=== PATIENT | female | born 1990 | race Caucasian/White ===

== ENCOUNTER 2017-09-21 15:07 | Inpatient (IN) | payer MEDICAID, OTHER ==
[~2017-09-21] VITALS: Ht 170.2 cm; Wt 79.8 kg
[~2017-09-21 15:07] MED LIST: ABIL10TA8 PO; CLON.5 PO; PLAQ200T PO; TRAZ100T10 PO; ZYPR5TAB PO
[2017-09-21] MEDS ORDERED: ALUMINUM/MAGNESIUM/SIMETH 30 ML CUP PO PRN (17:15)
[2017-09-21] MEDS ORDERED: BENZTROPINE MESYLATE 2 MG/2 ML VIAL IM PRN (17:15)
[2017-09-21] MEDS ORDERED: MAGNESIUM HYDROXIDE SUSP 30 ML CUP PO PRN (17:15)
[2017-09-21] MEDS ORDERED: ACETAMINOPHEN 325 MG TAB PO PRN (17:15)
[2017-09-21] MEDS ORDERED: BENZTROPINE MESYLATE 1 MG TAB PO PRN (17:15)
[2017-09-21] MEDS ORDERED: hydrOXYzine HCL 50 MG TAB PO PRN (17:15)
[2017-09-21 18:16] VITALS: BP 131/61; PULSE 92; RESP 18; TEMP 97.9; O2SAT 99
[2017-09-21] MEDS: traZODone HCL 100 MG TAB PO SCH (20:50)
[2017-09-21] MEDS ORDERED: clonazePAM 0.5 MG TAB PO SCH (21:00)
[2017-09-21] MEDS ORDERED: NON-FORMULARY DRUG (Trazodone 100 MG) PO SCH (21:00)
[2017-09-22 05:54] VITALS: BP 117/68; PULSE 85; RESP 18; TEMP 97.8; O2SAT 97
[2017-09-22 07:57] LABS: ANION GAP 7 MEQ/L (5-15); AST (GOT) 6 U/L (15-37); BICARBONATE 26.7 MEQ/L (21.0-32.0); BLOOD UREA NITROGEN 9 MG/DL (7-18); CHLORIDE 104 MEQ/L (98-107); GLOMERULAR FILTRATION RATE 109 ML/MIN (>89); POTASSIUM 4.1 MEQ/L (3.5-5.1); SODIUM (NA) 138 MEQ/L (136-145)
[2017-09-22 07:58] LABS: ALT (GPT) 19 U/L (10-53)
[2017-09-22 08:08] LABS: ALKALINE PHOSPHATASE 62 U/L (45-117); HDL CHOLESTEROL 44.4 MG/DL (40.0-60.0); LDL CHOLESTEROL 76 MG/DL (0-99); TOTAL BILIRUBIN ADULT 0.3 MG/DL (0.2-1.0)
[2017-09-22] MEDS: ARIPiprazole 10 MG TAB PO SCH (08:19)
[2017-09-22] MEDS: HYDROXYCHLOROQUINE SULFATE 200 MG TAB PO SCH (08:19)
[2017-09-22] MEDS: REMOVE OLD PATCH T-DERMAL SCH (09:00)
[2017-09-22] MEDS: NICOTINE 21 MG/24 HR PATCH T-DERMAL SCH (09:00)
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
[2017-09-22] MEDS: traZODone HCL 100 MG TAB PO SCH (20:59)
--- NOTE | 2017-09-22 21:24 | PD.CONS ---
HPI Service [facility] Consult Requested By Primary Care Physician Unknown Diagnoses: History of Present Illness Patient initially presented to hospital on September 20 secondary to intentional Tylenol overdose.Tylenol levels in the 60s, however returned to undetectable. She was treated with acetylcysteine, LFTs remained within normal limits. She currently says she feels RA. Denies any abdominal pain. Has no complaints. No chest pain, shortness breath, nausea, vomiting, headache, fevers, chills, diarrhea, constipation. Review of Systems Except as stated in HPI: all other systems reviewed are Neg Past Family Social History Allergies: Coded Allergies: No Known Allergies (Unverified , 09/20/17) Past Medical History Depression Bipolar disorder PTSD Lupus Past Surgical History Appendectomy Reported Medications Reported Medications Trazodone (Trazodone) 100 Mg Tablet, 100 MG PO HS for Control Depression, #30 TAB 0 Refills 09/20/17 Olanzapine (Zyprexa) 5 Mg Tab, 5 MG PO DAILY, #30 TAB 0 Refills 09/20/17 Hydroxychloroquine (Plaquenil) 200 Mg Tab, 200 MG PO DAILY, #30 TAB 0 Refills Take with food 09/20/17 Aripiprazole (Abilify) 10 Mg Tab, 10 MG PO DAILY, #30 TAB 0 Refills 09/20/17 Clonazepam (Klonopin) 0.5 Mg Tab, 0.5 MG PO BID, #60 TAB 0 Refills 09/20/17 Family History Patient reports family is healthy. Social History Nonsmoker. Denies any alcohol or illicit drugs. Physical Exam Vital Signs Vital Signs Date Time Temp Pulse Resp B/P (MAP) Pulse Ox O2 Delivery O2 Flow Rate FiO2 09/22/17 05:54 97.8 85 18 117/68 (84) 97 Physical Exam GENERAL: This is a well-nourished, well-developed patient, in no apparent distress.alert and oriented 3. SKIN: No rashes, ecchymoses or lesions. Cool and dry. HEAD: Atraumatic. Normocephalic. No temporal or scalp tenderness. EYES: Pupils equal round and reactive. Extraocular motions intact. No scleral icterus. No injection or drainage. ENT: Nose without bleeding, purulent drainage or septal hematoma. Throat without erythema, tonsillar hypertrophy or exudate. Uvula midline. Airway patent. NECK: Trachea midline. No JVD or lymphadenopathy. Supple, nontender, no meningeal signs. CARDIOVASCULAR: Regular rate and rhythm without murmurs, gallops, or rubs. RESPIRATORY: Clear to auscultation. Breath sounds equal bilaterally. No wheezes , rales, or rhonchi. GASTROINTESTINAL: Abdomen soft, non-tender, nondistended. No hepato-splenomegaly , or palpable masses. No guarding. MUSCULOSKELETAL: Extremities without clubbing, cyanosis, or edema. No joint tenderness, effusion, or edema noted. No calf tenderness. Negative Homans sign bilaterally. NEUROLOGICAL: Awake and alert. Cranial nerves II through XII intact. Motor and sensory grossly within normal limits. Five out of 5 muscle strength in all muscle groups. Normal speech. Laboratory Laboratory Tests Test 09/22/17 06:25 Blood Urea Nitrogen 9 Creatinine 0.66 Random Glucose 87 Total Protein 6.8 Albumin 3.6 Calcium Level 8.9 Alkaline Phosphatase 62 Aspartate Amino Transf (AST/SGOT) 6 Alanine Aminotransferase (ALT/SGPT) 19 Total Bilirubin 0.3 Sodium Level 138 Potassium Level 4.1 Chloride Level 104 Carbon Dioxide Level 26.7 Anion Gap 7 Estimat Glomerular Filtration Rate 109 Triglycerides Level 88 Cholesterol Level 138 LDL Cholesterol 76 HDL Cholesterol 44.4 Cholesterol/HDL Ratio 3.10 Thyroid Stimulating Hormone 3rd Gen 1.640 Result Diagram: 09/22/17 0625 Assessment and Plan Assessment and Plan //Multidrug overdose including Tylenol, Zofran on Klonopin. -Patient received acetylcysteine on previous admission. Liver enzymes are elevated late in Tylenol overdose. Recheck LFTs. //Bipolar disorder and PTSD. -As per psychiatry. //Lupus. Continue Plaquenil //Chronic anemia Hemoglobin 11.0. Continue to monitor. //Prediabetes. A1c 6.0 on previous admission. Follow-up with primary care as outpatient.. Discussed Condition With patient, nurse. Nate Morrow MD Sep 22, 2017 21:24
[2017-09-23 05:43] VITALS: BP 102/57; PULSE 87; RESP 16; TEMP 98.3; O2SAT 98
[2017-09-23] MEDS: REMOVE OLD PATCH T-DERMAL SCH (09:00)
[2017-09-23] MEDS: NICOTINE 21 MG/24 HR PATCH T-DERMAL SCH (09:00)
[2017-09-23] MEDS: HYDROXYCHLOROQUINE SULFATE 200 MG TAB PO SCH (09:14)
[2017-09-23] MEDS: ARIPiprazole 10 MG TAB PO SCH (09:14)
[2017-09-23 09:43] LABS: INDIRECT BILIRUBIN 0.2 MG/DL (0.0-0.8); TOTAL BILIRUBIN ADULT 0.3 MG/DL (0.2-1.0)
[2017-09-23 10:25] LABS: HEMOGLOBIN A1a 1.7 %; HEMOGLOBIN A1b 1.7 %; HEMOGLOBIN Ao 84.8 %; HEMOGLOBIN LA1C 1.8 %; HEMOGLOBIN P3 3.5 %
--- NOTE | 2017-09-23 11:50 | HHI.PYPN ---
Subjective Remarks Patient was seen and case discussed with nursing. Patient is very guarded and stoic during the interview. She is largely seclusive to her room but did come out for lunch. Appears to be embarrassed concerning her situation. Patient says her mood has improved and she denies suicidal or homicidal ideations thoughts intent or plan. Compliant with medications. Mental Status Examination Appearance: Appropriate Consciousness: Alert Orientation: x4 Motor Activity: Normal gait Speech: Unremarkable Language: Adequate Fund of Knowledge: Adequate Attention and Concentration: Adequate Memory: Unremarkable Mood: Sad Affect: Flat, Anxious Thought Process & Associations: Intact Thought Content: Appropriate Hallucination Type: None Delusion Type: None Suicidal Ideation: No Suicidal Plan: No Suicidal Intention: No Homicidal Ideation: No Homicidal Plan: No Homicidal Intention: No Insight: Adequate Judgment: Adequate Results Labs Test 09/23/17 08:36 Total Bilirubin 0.3 MG/DL Direct Bilirubin 0.1 MG/DL Indirect Bilirubin 0.2 MG/DL Aspartate Amino Transf (AST/SGOT) 15 U/L Alanine Aminotransferase (ALT/SGPT) 19 U/L Alkaline Phosphatase 67 U/L Total Protein 7.5 GM/DL Albumin 3.9 GM/DL Vitals/IOs Vital Signs Date Time Temp Pulse Resp B/P (MAP) Pulse Ox O2 Delivery O2 Flow Rate FiO2 09/23/17 05:43 98.3 87 16 102/57 (72) 98 Assessment & Plan Problem List: (1) Bipolar depression ICD Codes: F31.30 - Bipolar disorder, current episode depressed, mild or moderate severity, unspecified Assessment & Plan Continue current treatment plan Justification for Cont. Inpt. Patient will decompensate in a less restrictive setting Luis F Bustamante DO Sep 23, 2017 11:50
[2017-09-23] MEDS: traZODone HCL 100 MG TAB PO SCH (21:38)
[2017-09-23 22:00] VITALS: BP 112/68; PULSE 85; RESP 16; TEMP 98.3
[2017-09-24 06:12] VITALS: BP 118/58; PULSE 81; RESP 17; TEMP 98.5; O2SAT 97
[2017-09-24] MEDS: REMOVE OLD PATCH T-DERMAL SCH (09:00)
[2017-09-24] MEDS: NICOTINE 21 MG/24 HR PATCH T-DERMAL SCH (09:00)
[2017-09-24] MEDS: HYDROXYCHLOROQUINE SULFATE 200 MG TAB PO SCH (09:07)
[2017-09-24] MEDS: ARIPiprazole 10 MG TAB PO SCH (09:07)
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
== END 2017-09-24 13:40 | disposition left against medical advice (07) | DRG 885 ==
LOC: H270 16:22 → H260 09-22 11:06
PROVIDERS: ADMIT Psychiatry & Neurology Psychiatry; ATTEND Psychiatry & Neurology Psychiatry
DX: F31.31 Bipolar disorder, current episode depressed, mild (principal); D64.9 Anemia, unspecified; F43.10 Post-traumatic stress disorder, unspecified; Z91.5 Personal history of self-harm; Z62.810 Personal history of physical and sexual abuse in childhood; Z62.811 Personal history of psychological abuse in childhood; R73.03 Prediabetes
CPT/HCPCS: 80053; 80061; 80076; 80307; 81001; 83036; 83735; 84443; 84703; 85025; 85610; 85730; 93005; J2405; J7030; J7608